=== PATIENT | female | born 1970 | race Two or more races ===

== ENCOUNTER 2017-06-08 20:20 | Emergency (ER) | payer MEDICAID ==
--- NOTE | 2017-06-08 23:15 | ER Document Report ---
ED General - General Chief Complaint: Other Stated Complaint: PICC LINE ISSUE Time Seen by Provider: 06/08/17 21:57 Notes: Patient is a 47-year-old female presents with a PICC line complication concern. Patient reports that she has had a PICC line in place for several months. This was placed in [place] related to skin grafting to her bilateral lower extremities. Patient notes that the PICC line had not been used for the past several weeks but she has been doing saline flushes as instructed as apparently she was told by her providers in [place] that they "want to use it in case they need to surgery again". Patient states that a very significant length of the PICC line catheter was always outside of her body "that I could reach it to put flushes through". However she states that tonight when she is chronically in the area the catheter simply fell out. She notes that only approximately 0.5 cm of tubing was actually removed from her line site for the entire catheter was completely removed. She denies any significant pain, drainage or erythema to the area. Denies any shortness of breath or chest pain. She is here visiting family from out of town. TRAVEL OUTSIDE OF THE [place] IN LAST 30 DAYS: No - Related Data Allergies/Adverse Reactions: No Known Allergies Allergy (Unverified 06/08/17 20:28) Past Medical History - General Information source: Patient - Social History Smoking Status: Never Smoker Frequency of alcohol use: None Drug Abuse: None Lives with: Family Family History: Reviewed & Not Pertinent Patient has suicidal ideation: No Patient has homicidal ideation: No - Past Medical History Cardiac Medical History: Reports: Hx Hypertension Endocrine Medical History: Reports: Hx Diabetes Mellitus Type 2 Renal/ Medical History: Denies: Hx Peritoneal Dialysis Review of Systems - Review of Systems Notes: Constitutional: Negative for fever. HENT: Negative for sore throat. Eyes: Negative for visual changes. Cardiovascular: Negative for chest pain. Respiratory: Negative for shortness of breath. Gastrointestinal: Negative for abdominal pain, vomiting or diarrhea. Genitourinary: Negative for dysuria. Musculoskeletal: Negative for back pain. Skin: Negative for rash. Neurological: Negative for headaches, weakness or numbness. 10 point ROS negative except as marked above and in HPI. Physical Exam - Vital signs Vitals: Temp Pulse Resp BP Pulse Ox 98.6 F 95 18 121/60 100 06/08/17 20:42 06/08/17 20:42 06/08/17 20:42 06/08/17 20:42 06/08/17 20:42 Interpretation: Normal Notes: PHYSICAL EXAMINATION: GENERAL: Well-appearing, well-nourished and in no acute distress. HEAD: Atraumatic, normocephalic. EYES: Pupils equal round and reactive to light, extraocular movements intact, sclera anicteric, conjunctiva are normal. ENT: nares patent, oropharynx clear without exudates. Moderately dry mucous membranes. NECK: Normal range of motion, supple without lymphadenopathy LUNGS: Breath sounds clear to auscultation bilaterally and equal. No wheezes rales or rhonchi. HEART: Regular rate and rhythm without murmurs ABDOMEN: Soft, nontender, normoactive bowel sounds. No guarding, no rebound. No masses appreciated. EXTREMITIES: Normal range of motion, no pitting or edema. No cyanosis. NEUROLOGICAL: No focal neurological deficits. Moves all extremities spontaneously and on command. PSYCH: Normal mood, normal affect. SKIN: Warm, Dry, normal turgor, small punctate wound to the right upper inner arm to the area of the brachial vein without any concerning erythema or exudate expression. Course - Re-evaluation Re-evalutation: 06/08/17 23:14 Patient presents after her right PICC line fell out although she reports that when it fell out only a very small tip of the catheter came out with the PICC line. The catheter that the patient brings with her does appear to have been cut off at the tip although I am uncertain of if it was this way when it was inserted. Will obtain a chest x-ray to evaluate for any remaining component that could be within the chest of the patient is denying any symptoms at this point. This line was placed apparently in [place] for skin grafting of the bilateral lower extremities. Her vitals otherwise within normal limits. If chest x-ray does not visualize any retained foreign body will plan for discharge home. 06/08/17 23:38 Chest x-ray does not visualize any foreign body. Patient will follow up with the group whom place the PICC line. At this time will discharge with return precautions and follow-up recommendations. Verbal discharge instructions given a the bedside and opportunity for questions given. Medication warnings reviewed. Patient is in agreement with this plan and has verbalized understanding of return precautions and the need for primary care follow-up in the next 24-72 hours. - Vital Signs Vital signs: Temp Pulse Resp BP Pulse Ox 99.3 F 97 18 129/82 H 100 06/09/17 00:37 06/09/17 00:37 06/09/17 00:37 06/09/17 00:50 06/08/17 20:42 - Diagnostic Test Radiology reviewed: Image reviewed, Reports reviewed Radiology results interpreted by me: 06/08/17 23:38 Chest x-ray: No evidence of retained foreign body in the central vasculature. No pneumothorax. Discharge - Discharge Clinical Impression: S/P PICC central line placement Condition: Good Disposition: HOME, SELF-CARE Additional Instructions: Please contact the group that placed the PICC line in regards to what exactly happened with placement of this line as it does not appear that it was placed appropriately. Your chest x-ray is normal. Return for any spreading redness or bleeding from the site where the PICC line was inserted. Please also return for any fever or additional symptoms that are worrisome to you.
--- NOTE | 2017-06-09 00:14 | RADIOLOGY REPORT (SQ) ---
EXAM DESCRIPTION: CHEST SINGLE VIEW CLINICAL HISTORY: 47 years, Female, picc line, eval any remaining catheter COMPARISON: None. FINDINGS: Normal lung volume, clear parenchyma, normal cardiac silhouette, and intact bony thorax. IMPRESSION: No acute cardiopulmonary findings.
[2017-06-09 01:26] VITALS: BP 129/82
== END 2017-06-09 00:50 | disposition home or self-care (01) ==
LOC: ER 20:20
DX: Z45.2 Encounter for adjustment and management of vascular access device (principal); Z98.890 Other specified postprocedural states; E11.9 Type 2 diabetes mellitus without complications; I10 Essential (primary) hypertension
CPT/HCPCS: 71045; 99283

== ENCOUNTER 2017-06-27 11:27 | Emergency (ER) | payer MEDICAID ==
[2017-06-27] MEDS ORDERED: INSULIN REG, HUMAN 100 UNIT/ML 3 ML VIAL (PYX) SUBCUT ONE ×2 (13:02→14:17)
--- NOTE | 2017-06-27 13:02 | ER Document Report ---
ED General - General Chief Complaint: Medication Refill Stated Complaint: MEDICATION REFILL Time Seen by Provider: 06/27/17 13:02 Mode of Arrival: Ambulatory Information source: Patient Notes: 47-year-old female presents initially as a medication refill, it is noted that the patient went to the [facility] but was unable to get appointments, she has been out of her medications for approximately 1 day but notes that she has been stretching out her insulin and has not been taking appropriate amounts. Patient denies any nausea vomiting diarrhea TRAVEL OUTSIDE OF THE [place] IN LAST 30 DAYS: No - HPI Onset: Yesterday Onset/Duration: Sudden Quality of pain: No pain Severity: Mild Pain Level: Denies Associated symptoms: Other Exacerbated by: Denies Relieved by: Denies Similar symptoms previously: Yes Recently seen / treated by doctor: Yes - Related Data Allergies/Adverse Reactions: No Known Allergies Allergy (Verified 06/27/17 11:28) Past Medical History - Social History Smoking Status: Never Smoker Cigarette use (# per day): No Chew tobacco use (# tins/day): No Smoking Education Provided: No Frequency of alcohol use: None Drug Abuse: None Family History: Reviewed & Not Pertinent Patient has suicidal ideation: No Patient has homicidal ideation: No - Past Medical History Cardiac Medical History: Reports: Hx Hypertension Endocrine Medical History: Reports: Hx Diabetes Mellitus Type 2 Renal/ Medical History: Denies: Hx Peritoneal Dialysis Review of Systems - Review of Systems Notes: REVIEW OF SYSTEMS: CONSTITUTIONAL : Denies fever, chills, or sweats. Denies recent illness. EENT: Denies eye, ear, throat, or mouth pain or symptoms. Denies nasal or sinus congestion or discharge. Denies throat, tongue, or mouth swelling or difficulty swallowing. CARDIOVASCULAR: Denies chest pain. Denies palpitations or racing or irregular heart beat. Denies ankle edema. RESPIRATORY: Denies cough, cold, or chest congestion. Denies shortness of breath, difficulty breathing, or wheezing. GASTROINTESTINAL: Denies abdominal pain or distention. Denies nausea, vomiting , or diarrhea. Denies blood in vomitus, stools, or per rectum. Denies black, tarry stools. Denies constipation. GENITOURINARY: Denies difficulty urinating, painful urination, burning, frequency, blood in urine, or discharge. FEMALE GENITOURINARY: Denies vaginal bleeding, heavy or abnormal periods, irregular periods. Denies vaginal discharge or odor. MUSCULOSKELETAL: Denies back or neck pain or stiffness. Denies joint pain or swelling. SKIN: Denies rash, lesions or sores. HEMATOLOGIC : Denies easy bruising or bleeding. LYMPHATIC: Denies swollen, enlarged glands. NEUROLOGICAL: Denies confusion or altered mental status. Denies passing out or loss of consciousness. Denies dizziness or lightheadedness. Denies headache. Denies weakness or paralysis or loss of use of either side. Denies problems with gait or speech. Denies sensory loss, numbness, or tingling. Denies seizures. PSYCHIATRIC: Denies anxiety or stress. Denies depression, suicidal ideation, or homicidal ideation. ALL OTHER SYSTEMS REVIEWED AND NEGATIVE. PHYSICAL EXAMINATION: GENERAL: Well-appearing, well-nourished and in no acute distress. HEAD: Atraumatic, normocephalic. EYES: Pupils equal round and reactive to light, extraocular movements intact, conjunctiva are normal. ENT: Nares patent, oropharynx clear without exudates. Moist mucous membranes. NECK: Normal range of motion, supple without lymphadenopathy LUNGS: Breath sounds clear to auscultation bilaterally and equal. No wheezes rales or rhonchi. HEART: Regular rate and rhythm without murmurs ABDOMEN: Soft, nontender, nondistended abdomen. No guarding, no rebound. No masses appreciated. Female : deferred Musculoskeletal: Normal range of motion, no pitting or edema. No cyanosis. NEUROLOGICAL: Cranial nerves grossly intact. Normal speech, normal gait. Normal sensory, motor exams PSYCH: Normal mood, normal affect. SKIN: Warm, Dry, normal turgor, no rashes or lesions noted. Dictation was performed using [employer] voice recognition software Physical Exam - Vital signs Vitals: Temp Pulse Resp BP Pulse Ox 97.7 F 99 20 121/72 100 06/27/17 11:31 06/27/17 11:31 06/27/17 11:31 06/27/17 11:31 06/27/17 11:31 Course - Re-evaluation Re-evalutation: 06/27/17 13:03 Spoke with the [facility], noted patients on insulin, metformin , benazopril 06/27/17 16:17 Patient's Accu-Chek was significantly elevated, she was given insulin 2 and a blood sugar finally decreased, she will be written prescriptions and given very strict follow-up instructions. Patient does not appear to be in DKA at this time, After performing a Medical Screening Examination, I estimate there is LOW risk for INTRACRANIAL HEMORRHAGE, ISCHEMIC CVA, MALIGNANT DYSRHYTHMIA, ACUTE CORONARY SYNDROME, MENINGITIS, PULMONARY EMBOLISM, or SEPSIS thus I consider the discharge disposition reasonable. I have reevaluated this patient multiple times and no significant life threatening changes are noted. The patient and I have discussed the diagnosis and risks, and we agree with discharging home with close follow-up with the understanding that symptoms and presentations can change. We also discussed returning to the Emergency Department immediately if new or worsening symptoms occur. We have discussed the symptoms which are most concerning (e.g., changing or worsening pain, weakness, vomiting, fever) that necessitate immediate return. - Vital Signs Vital signs: Temp Pulse Resp BP Pulse Ox 98.0 F 89 18 102/58 L 100 06/27/17 16:00 06/27/17 16:00 06/27/17 16:00 06/27/17 16:00 06/27/17 16:00 - Laboratory Laboratory results interpreted by me: 06/27/17 06/27/17 06/27/17 12:56 14:13 15:43 POC Glucose 378 H 363 H 256 H Critical Care Note - Critical Care Note Total time excluding time spent on procedures (mins): 49 Comments: 49 minutes of critical care time spent in direct contact evaluating and reevaluating the patient, treating symptoms, reviewing labs and studies and speaking with family and consultants excluding any procedures Discharge - Discharge Clinical Impression: Hyperglycemia Hypertension Qualifiers: Hypertension type: essential hypertension Qualified Code(s): I10 - Essential ( primary) hypertension Condition: Stable Disposition: HOME, SELF-CARE Instructions: Diabetes ([facility]), High Blood Pressure ([facility]) Additional Instructions: Follow up with your physician tomorrow for further care or return to the ED IMMEDIATELY if symptoms worsen or new concerns occur. If you cannot afford to follow up with your primary care physician a list of low cost clinics have been provided at the end of your discharge papers as well. Prescriptions: Insulin Glargine,Hum.rec.anlog [Stormyaglclemente Burris U-100] 35 unit SQ QHS 30 Days insuln.pen Benazepril HCl 10 mg PO DAILY #30 tablet Insulin Lispro [Admelog Solostar] 10 unit SQ MEALS 30 Days insuln.pen Metformin HCl 1,000 mg PO BID #60 tablet
[2017-06-27 16:09] VITALS: BP 102/58
== END 2017-06-27 16:10 | disposition home or self-care (01) ==
LOC: ER 11:27
DX: E11.65 Type 2 diabetes mellitus with hyperglycemia (principal); T38.3X6A Underdosing of insulin and oral hypoglycemic [antidiabetic] drugs, initial encounter; Z91.128 Patient's intentional underdosing of medication regimen for other reason; Z91.14 Patient's other noncompliance with medication regimen; Z79.4 Long term (current) use of insulin; Z79.84 Long term (current) use of oral hypoglycemic drugs; I10 Essential (primary) hypertension; Z79.899 Other long term (current) drug therapy
CPT/HCPCS: 99291; 82962; J1815

== ENCOUNTER → 2017-08-16 | Outpatient (CLI) | payer OTHER ==
[2017-08-16 13:11] LABS: ABSOLUTE BASOPHILS # (AUTO) 0.1 10^3/uL (0.0-0.2); ABSOLUTE EOSINOPHILS # (AUTO) 0.2 10^3/uL (0.0-0.6); ABSOLUTE LYMPHOCYTES (AUTO) 2.7 10^3/uL (0.5-4.7); ABSOLUTE MONOCYTES (AUTO) 0.5 10^3/uL (0.1-1.4); BASOPHILS % (AUTO) 0.9 % (0-2); EOSINOPHILS % (AUTO) 2.2 % (0-6); HEMATOCRIT 33.5 % (36.0-47.0); HEMOGLOBIN 11.5 g/dL (12.0-15.5); LYMPHOCYTES % (AUTO) 25.8 % (13-45); MEAN CORPUSCULAR HEMOGLOBIN 30.2 pg (27.0-33.4); MEAN CORPUSCULAR HGB CONC 34.2 g/dL (32.0-36.0); MEAN CORPUSCULAR VOLUME 88 fl (80-97); MONOCYTES % (AUTO) 4.6 % (3-13); PLATELET COUNT 283 10^3/uL (150-450); RED CELL DISTRIBUTION WIDTH 12.5 % (11.5-14.0); SEGMENTED NEUTROPHILS % (AUTO) 66.5 % (42-78); TOTAL CELLS COUNTED % (AUTO) 100 %; WHITE BLOOD COUNT 10.6 10^3/uL (4.0-10.5)
[2017-08-16 13:29] LABS: ALANINE AMINOTRANSFERASE 26 U/L (9-52); ALBUMIN 4.3 g/dL (3.5-5.0); ALKALINE PHOSPHATASE 66 U/L (38-126); ANION GAP 15 (5-19); ASPARTATE AMINO TRANSFERASE 15 U/L (14-36); BILIRUBIN,DIRECT 0.4 mg/dL (0.0-0.4); BILIRUBIN,TOTAL 0.8 mg/dL (0.2-1.3); BLOOD UREA NITROGEN 43 mg/dL (7-20); CALCIUM 9.9 mg/dL (8.4-10.2); CARBON DIOXIDE 24 mmol/L (22-30); CHLORIDE 106 mmol/L (98-107); CHOLESTEROL 188.94 mg/dL (0-200); GLUCOSE 192 mg/dL (75-110); POTASSIUM 5.8 mmol/L (3.6-5.0); SODIUM 145.1 mmol/L (137-145); TOTAL PROTEIN 7.9 g/dL (6.3-8.2); TRIGLYCERIDES 215 mg/dL (<150)
[2017-08-16 13:40] LABS: DIRECT LDL 88 mg/dL (<100)
== END ==
LOC: CCC 11:45
DX: E11.8 Type 2 diabetes mellitus with unspecified complications (principal)
CPT/HCPCS: 36415; 80053; 80061; 83036; 84443; 85025

== ENCOUNTER 2018-10-17 09:25 | Inpatient (IN) | payer SELFPAY ==
--- NOTE | 2018-10-17 09:45 | ER Document Report ---
ED Medical Screen (RME) - General Chief Complaint: Foot Pain Stated Complaint: FOOT PAIN Time Seen by Provider: 10/17/18 09:43 Primary Care Provider: LATA MURPHY [Primary Care Provider] - Follow up as needed Mode of Arrival: Wheelchair Information source: Patient Notes: Patient presents with diabetic foot wound infection involving the left fourth toe. Patient has already had a previous left fifth toe amputation. Patient reports chills and fever at home with purulent drainage from the wound. Patient was sent here from her primary doctor's office with the intent that she should be admitted. Patient does have a history of diabetes and her blood sugar was over 500 today. Patient also has a history of hypertension I have greeted and performed a rapid initial assessment of this patient. A comprehensive ED assessment and evaluation of the patient, analysis of test results and completion of the medical decision making process will be conducted by additional ED providers. TRAVEL OUTSIDE OF THE [place] IN LAST 30 DAYS: No - Related Data Allergies/Adverse Reactions: No Known Allergies Allergy (Verified 10/17/18 09:42) Past Medical History - Past Medical History Cardiac Medical History: Reports: Hx Hypertension Endocrine Medical History: Reports: Hx Diabetes Mellitus Type 2 Renal/ Medical History: Denies: Hx Peritoneal Dialysis Physical Exam - Vital signs Vitals: Temp Pulse Resp BP Pulse Ox 98.1 F 98 18 153/110 H 97 10/17/18 09:30 10/17/18 09:30 10/17/18 09:30 10/17/18 09:30 10/17/18 09:30 - General Notes: Diabetic foot infection with abscess involving the left fourth toe Course - Vital Signs Vital signs: Temp Pulse Resp BP Pulse Ox 98.1 F 98 18 153/110 H 97 10/17/18 09:30 10/17/18 09:30 10/17/18 09:30 10/17/18 09:30 10/17/18 09:30 Doctor's Discharge - Discharge Referrals: LATA MURPHY [Primary Care Provider] - Follow up as needed
--- NOTE | 2018-10-17 10:33 | RADIOLOGY REPORT (SQ) ---
EXAM DESCRIPTION: FOOT LEFT COMPLETE COMPLETED DATE/TIME: 10/17/2018 10:23 am REASON FOR STUDY: diabetic foot wound COMPARISON: None. NUMBER OF VIEWS: Three views. TECHNIQUE: AP, lateral and oblique without weight bearing radiographic images acquired of the left f oot. LIMITATIONS: None. FINDINGS: MINERALIZATION: Normal. BONES: Previous amputation of the 5th toe. No acute fracture or dislocation. No worrisome bone lesio ns. No significant osteophytes. JOINTS: No erosions. No chuy-articular osteopenia. No chondrocalcinosis. SOFT TISSUES: No swelling. No calcifications. OTHER: No other significant finding. IMPRESSION: PREVIOUS AMPUTATION OF THE LEFT 5TH TOE. NO OTHER SIGNIFICANT FINDINGS. TECHNICAL DOCUMENTATION: JOB ID: [id number] [employer]- All Rights Reserved Reading location - IP/workstation name: [email or web address]
[2018-10-17 10:53] LABS: HEMATOCRIT 34.5 % (36.0-47.0); HEMOGLOBIN 11.6 g/dL (12.0-15.5); MEAN CORPUSCULAR HEMOGLOBIN 29.3 pg (27.0-33.4); MEAN CORPUSCULAR HGB CONC 33.6 g/dL (32.0-36.0); MEAN CORPUSCULAR VOLUME 87 fl (80-97); PLATELET COUNT 201 10^3/uL (150-450); RED BLOOD COUNT 3.95 10^6/uL (3.72-5.28); RED CELL DISTRIBUTION WIDTH 12.3 % (11.5-14.0); WHITE BLOOD COUNT 13.2 10^3/uL (4.0-10.5)
[2018-10-17 11:06] LABS: ABSOLUTE LYMPHOCYTES# (MANUAL) 3.2 10^3/uL (0.5-4.7); ABSOLUTE MONOCYTES # (MANUAL) 0.5 10^3/uL (0.1-1.4); BASOPHILS % (MANUAL) 1 % (0-2); EOSINOPHILS % (MANUAL) 6 % (0-6); LYMPHOCYTES % (MANUAL) 23 % (13-45); MONOCYTES % (MANUAL) 4 % (3-13); SEGMENTED NEUTROPHILS % (MAN) 65 % (42-78); TOTAL CELLS COUNTED 100
[2018-10-17 11:10] LABS: PLATELET COMMENT ADEQUATE; RBC MORPHOLOGY COMMENT NORMO-CYTIC/CHROMIC
[2018-10-17 11:18] LABS: ALANINE AMINOTRANSFERASE 17 U/L (9-52); ALBUMIN 3.2 g/dL (3.5-5.0); ALKALINE PHOSPHATASE 115 U/L (38-126); ANION GAP 13 (5-19); ASPARTATE AMINO TRANSFERASE 15 U/L (14-36); BILIRUBIN,DIRECT 0.2 mg/dL (0.0-0.4); BILIRUBIN,TOTAL 0.7 mg/dL (0.2-1.3); BLOOD UREA NITROGEN 41 mg/dL (7-20); CALCIUM 8.8 mg/dL (8.4-10.2); CARBON DIOXIDE 20 mmol/L (22-30); CHLORIDE 100 mmol/L (98-107); GLUCOSE 391 mg/dL (75-110); SODIUM 132.6 mmol/L (137-145); TOTAL PROTEIN 6.5 g/dL (6.3-8.2)
[2018-10-17 11:23] LABS: VENOUS BLOOD BASE EXCESS 2.3 mmol/L; VENOUS BLOOD HCO3 29.6 mmol/L (20-32); VENOUS BLOOD PCO2 56.9 mmHg (35-63); VENOUS BLOOD PH 7.33 (7.30-7.42)
[2018-10-17] MEDS ORDERED: VANCOMYCIN HCL INJ 1000 MG VIAL IV ONE (11:38)
[2018-10-17] MEDS ORDERED: PIPERACILLIN/TAZOBACTAM 3.375 GM VIAL IV ONE (11:38)
[2018-10-17] MEDS ORDERED: NORMAL SALINE 1000 ML 1,000 ML IV ONE (11:39)
--- NOTE | 2018-10-17 12:00 | ER Document Report ---
ED General - General Chief Complaint: Foot Pain Stated Complaint: FOOT PAIN Time Seen by Provider: 10/17/18 09:43 Mode of Arrival: Wheelchair TRAVEL OUTSIDE OF THE [place] IN LAST 30 DAYS: No - HPI Notes: 48-year-old female with history of diabetes to the emergency department from her primary care physician's office with complaints of left fourth toe diabetic foot infection. She states that she started to notice that the toe was changing colors at the beginning of the weekend. States that she was trying to keep it clean but on Monday she noticed purulent drainage and that it was starting to get red. She admits to subjective fevers. She states that she called her primary care physician who told her to come in on Monday for further evaluation. States that when she got to her primary care physician's office her blood sugar was running in the 500s and after exam, her primary care physician asked for her to come to the emergency department for admission. She admits that she has not had her insulin, Lantus and NovoLog, for nearly 3 months. One year ago she had the left pinky toe amputated after a similar episode in [place]. She does not have a health information technologist here. She has no feeling in both of her feet but she denies any sort of injury. - Related Data Allergies/Adverse Reactions: No Known Allergies Allergy (Verified 10/17/18 09:42) Past Medical History - General Information source: Patient, Relative - Social History Smoking Status: Never Smoker Chew tobacco use (# tins/day): No Frequency of alcohol use: None Drug Abuse: None Family History: Reviewed & Not Pertinent Patient has suicidal ideation: No Patient has homicidal ideation: No - Past Medical History Cardiac Medical History: Reports: Hx Hypertension Endocrine Medical History: Reports: Hx Diabetes Mellitus Type 2 Renal/ Medical History: Denies: Hx Peritoneal Dialysis Review of Systems - Review of Systems Constitutional: Fever. denies: Chills EENT: No symptoms reported Cardiovascular: denies: Chest pain, Palpitations, Syncope, Dizziness, Lightheaded Respiratory: denies: Cough, Short of breath Gastrointestinal: denies: Abdominal pain, Diarrhea, Nausea, Vomiting Genitourinary: No symptoms reported Musculoskeletal: Joint swelling - Left fourth toe edema Skin: Lesions - Ulcer and wound to the left fourth toe with draining pus Neurological/Psychological: Numbness - Chronic numbness bilateral feet -: Yes All other systems reviewed and negative Physical Exam - Vital signs Vitals: Temp Pulse Resp BP Pulse Ox 98.1 F 98 18 153/110 H 97 10/17/18 09:30 10/17/18 09:30 10/17/18 09:30 10/17/18 09:30 10/17/18 09:30 Interpretation: Hypertensive - General General appearance: Appears well In distress: None - HEENT Head: Normocephalic, Atraumatic Eyes: Normal Pupils: PERRL - Respiratory Respiratory status: No respiratory distress Chest status: Nontender Breath sounds: Normal Chest palpation: Normal - Cardiovascular Rhythm: Regular Heart sounds: Normal auscultation Murmur: No - Extremities General lower extremity: Nontender, Normal ROM, Normal strength, Other - See skin for discussion of left fourth toe ulcer - Psychological Associated symptoms: Normal affect, Normal mood - Skin Skin Color: Erythema Skin irregularity: Lesion - To the left dorsal fourth toe, there is an evolving diabetic foot ulcer with noted purulence and surrounding edema and erythema. The erythema streaks up onto the dorsum of the foot. Course - Vital Signs Vital signs: Temp Pulse Resp BP Pulse Ox 97.9 F 88 16 157/95 H 99 10/17/18 14:06 10/17/18 14:06 10/17/18 14:06 10/17/18 14:06 10/17/18 14:06 - Laboratory Result Diagrams: 10/17/18 10:39 10/17/18 10:39 Laboratory results interpreted by me: 10/17/18 10/17/18 10:39 10:39 WBC 13.2 H Hgb 11.6 L Hct 34.5 L Abs Neuts (Manual) 8.6 H Absolute Eos (Manual) 0.8 H Sodium 132.6 L Carbon Dioxide 20 L BUN 41 H Glucose 391 H Albumin 3.2 L - Transfer of Care Notes: 10/17/[address] Borrego, ER attending. He agrees with the plan for admission for the patient for infected diabetic foot ulcer with leukocytosis and uncontrolled hyperglycemia. Patient is not diabetic ketoacidosis. Spoke with Dr. Boyle, Hospitalist. He asked for me to call Verenice Maxwell NP for hospitalist team, for admission. Spoke with nurse practitioner Verenice Maxwell and she agrees with the plan for admission. She is aware of patient's current vital signs as well as her leukocytosis and her hyperglycemia. She is aware of insulin treatment from clinic prior to arrival. She is also aware of vancomycin and Zosyn ordered for infection. We also discussed x-ray that does not show signs of osteomyelitis. She would like for me to consult to general surgery for evaluation for debridement. Paged Dr. Kelly, general surgery, He is currently in surgery, asked his nurse to call me once he has completed the surgery. 10/17/[address] Kelly, General Surgery. He will consult on the patient. he is aware of patient's floor bed and will see her. We discussed her leukocytosis, vitals, XR, DM. Patient agrees with the plan. Discharge - Discharge Clinical Impression: Diabetic foot ulcer Qualifiers: Diabetic foot ulcer location: toe Diabetes mellitus type: type 1 Laterality: left Non-pressure ulcer stage: with other severity Qualified Code(s): E10.621 - Type 1 diabetes mellitus with foot ulcer Cellulitis Qualifiers: Site of cellulitis of extremity: lower extremity Laterality: left Disposition: ADMITTED INPATIENT Admitting Provider: Verenice Maxwell NP Unit Admitted: [facility]
[2018-10-17] MEDS ORDERED: ACETAMINOPHEN 325 MG TABLET PO PRN (13:07)
[2018-10-17] MEDS ORDERED: ONDANSETRON 4 MG TAB.RAPDIS PO PRN (13:07)
[2018-10-17] MEDS ORDERED: DEXTROSE 40% GEL 15 GM TUBE PO PRN ×2 (13:22)
[2018-10-17] MEDS ORDERED: GLUCAGON,HUMAN RECOMB 1 MG INJ IM PRN (13:22)
[2018-10-17] MEDS ORDERED: DEXTROSE 50%-WATER 25 GM/50 ML DISP.SYRIN IV PRN ×2 (13:22)
[2018-10-17] MEDS ORDERED: HYDRALAZINE HCL INJ/PF 20 MG/1 ML SDV IV PRN (13:24)
[2018-10-17] MEDS ORDERED: VANCOMYCIN HCL 0 MG in DEXTROSE 5%-WATER 250 ML IV NR (13:30)
--- NOTE | 2018-10-17 13:51 | PDOC H&P ---
History of Present Illness Admission Date/PCP: 10/17/18 12:19 ELMO REAGAN MD Patient complains of: L FOOT PAIN History of Present Illness: MIREYA BRADY is a 48 year old female with a PMH of DM type 1 and HTN. Patient presents to the emergency department with a 5-day history of left foot pain, erythema initiating from the fourth toe and an ulcer forming on the dorsal surface of the fourth toe. The patient states that her wound and surrounding erythema were getting progressively worse over the last few days. She went to the [facility] in [place] to have her foot evaluated. At the clinic, her blood glucose was 500+. The patient's PCP instructed her to come to the emergency department for treatment of her DM and foot. Upon presentation, the patient's laboratory results are relatively benign. Only indicative of hyperglycemia (BG 391), leukocytosis (WBC 13), mild hyponatremia (Na 132). X-ray of the left foot is WNL, not indicative of osteomyelitis. On assessment, the 4th left toe has an open wound on the dorsal surface with minimal purulent drainage. There is surrounding erythema at the base of the left fourth toe extending to the dorsal surface of the left foot. There is nonpitting edema to the left foot and ankle. The patient states she does not feel pain, in fact, has no sensation below the knees (this is chronic due to poorly controlled diabetes). Of note, the patient moved to [place], [place] from [place] within the last year. She is currently unemployed and without health insurance. The patient sta luis she has been attempting to manage her diabetes and HTN with strict dieting. She has not been taking her insulin for the last three months because she "didn't feel like it." Plan to admit to the hospitalist service for cellulitis and diabetes management. Past Medical History Cardiac Medical History: Reports: Hypertension Endocrine Medical History: Reports: Diabetes Mellitus Type 1 - DIAGNOSED AT AGE 8 Past Surgical History Past Surgical History: Reports: Other - L 5TH TOE AMPUTATION Social History Information Source: Relative Lives with: Family Smoking Status: Never Smoker Frequency of Alcohol Use: None Hx Recreational Drug Use: No Drugs: None Hx Prescription Drug Abuse: No - Advance Directive Resuscitation Status: Full Code Family History Family History: DM Parental Family History Reviewed: Yes Children Family History Reviewed: Yes Sibling(s) Family History Reviewed.: Yes Medication/Allergy Home Medications: Insulin Glargine,Hum.rec.anlog [Basaglar Kwikpen U-100] 35 unit SQ QHS 30 Days insuln.pen 06/27/17 Insulin Lispro [Admelog Solostar] 10 unit SQ MEALS 30 Days insuln.pen 06/27/17 Allergies/Adverse Reactions: No Known Allergies Allergy (Verified 10/17/18 09:42) Review of Systems Constitutional: ABSENT: chills, fever(s), headache(s), weight gain, weight loss Eyes: ABSENT: visual disturbances Ears: ABSENT: hearing changes Cardiovascular: ABSENT: chest pain, dyspnea on exertion, edema, orthropnea, palpitations Respiratory: ABSENT: cough, hemoptysis Gastrointestinal: ABSENT: abdominal pain, constipation, diarrhea, hematemesis, hematochezia, nausea, vomiting Genitourinary: ABSENT: dysuria, hematuria Musculoskeletal: ABSENT: joint swelling Integumentary: ABSENT: rash, wounds Neurological: PRESENT: paresthesias - BELOW THE KNEE B/L - SENCONDARY TO POORLY CONTROLLED DIABETES. ABSENT: abnormal gait, abnormal speech, confusion, dizziness, focal weakness, frequent falls, syncope Psychiatric: ABSENT: anxiety, depression, homidical ideation, suicidal ideation Endocrine: ABSENT: cold intolerance, heat intolerance, polydipsia, polyuria Hematologic/Lymphatic: ABSENT: easy bleeding, easy bruising Physical Exam Vital Signs: Temp Pulse Resp BP Pulse Ox 98.1 F 98 18 153/110 H 97 10/17/18 09:30 10/17/18 09:30 10/17/18 09:30 10/17/18 09:30 10/17/18 09:30 Intake & Output 10/16/18 10/17/18 10/18/18 06:59 06:59 06:59 Weight 78.8 kg General appearance: PRESENT: no acute distress, obese Head exam: PRESENT: atraumatic, normocephalic Eye exam: PRESENT: conjunctiva pink, EOMI, PERRLA. ABSENT: scleral icterus Ear exam: PRESENT: normal external ear exam Mouth exam: PRESENT: moist, tongue midline Neck exam: ABSENT: carotid bruit, JVD, lymphadenopathy, thyromegaly Respiratory exam: PRESENT: unlabored. ABSENT: rales, rhonchi, wheezes Cardiovascular exam: PRESENT: RRR. ABSENT: diastolic murmur, rubs, systolic murmur Pulses: PRESENT: normal radial pulses, +1 pedal pulses bilateral Vascular exam: PRESENT: normal capillary refill GI/Abdominal exam: PRESENT: normal bowel sounds, soft. ABSENT: distended, guarding, mass, organolmegaly, rebound, tenderness Rectal exam: PRESENT: deferred Extremities exam: PRESENT: full ROM. ABSENT: calf tenderness, clubbing, pedal edema, tenderness - BELOW THE L KNEE COMPLETE LOSS OF SENSATION Musculoskeletal exam: PRESENT: ambulatory, deformity - L FOOT 5TH TOE AMPUTATION. 4TH TOE ERYTHEMA AND EDEMA, full ROM. ABSENT: normal inspection Neurological exam: PRESENT: alert, awake, oriented to person, oriented to place, oriented to time, oriented to situation Psychiatric exam: PRESENT: appropriate affect, normal mood. ABSENT: homicidal ideation, suicidal ideation Skin exam: PRESENT: dry, intact, warm. ABSENT: cyanosis, rash Results Laboratory Results: 10/17/18 10:39 10/17/18 10:39 10/17/18 10/17/18 10/17/18 10:39 10:39 11:05 WBC 13.2 H RBC 3.95 Hgb 11.6 L Hct 34.5 L MCV 87 MCH 29.3 MCHC 33.6 RDW 12.3 Plt Count 201 Seg Neutrophils % Not Reportable Lymphocytes % Not Reportable Monocytes % Not Reportable Eosinophils % Not Reportable Basophils % Not Reportable Absolute Neutrophils Not Reportable Absolute Lymphocytes Not Reportable Absolute Monocytes Not Reportable Absolute Eosinophils Not Reportable Absolute Basophils Not Reportable VBG pH 7.33 VBG pCO2 56.9 VBG HCO3 29.6 VBG Base Excess 2.3 Sodium 132.6 L Potassium 5.0 Chloride 100 Carbon Dioxide 20 L Anion Gap 13 BUN 41 H Creatinine 0.98 Est GFR ( Amer) > 60 Est GFR (Non-Af Amer) > 60 Glucose 391 H Calcium 8.8 Total Bilirubin 0.7 AST 15 ALT 17 Alkaline Phosphatase 115 Total Protein 6.5 Albumin 3.2 L Impressions: Foot X-Ray 10/17/18 09:44 IMPRESSION: PREVIOUS AMPUTATION OF THE LEFT 5TH TOE. NO OTHER SIGNIFICANT FINDINGS. Status: Imported from PACS Assessment and Plan - Diagnosis (1) Diabetic foot ulcer Qualifiers: Diabetic foot ulcer location: toe Diabetes mellitus type: type 1 Laterality: left Non-pressure ulcer stage: with other severity Qualified Code(s): E10.621 - Type 1 diabetes mellitus with foot ulcer; L97.528 - Non-pre ssure chronic ulcer of other part of left foot with other specified severity Is this a current diagnosis for this admission?: Yes Plan: L 4th toe diabetic foot ulcer With surrounding erythema and edema to the dorsal aspect of the left foot History of osteomyelitis in the L fifth toe, status post amputation X-ray left foot negative for osteomyelitis Broad-spectrum antibiotic coverage as these wounds tend to be poly microbial Received IV vancomycin and Zosyn in the emergency department, plan to continue throughout hospitalization Will consult surgery for possible wound debridement If no improvement of clinical picture, consider foot MRI for better osteomyelitis evaluation and/or amputation (2) Cellulitis Qualifiers: Site of cellulitis of extremity: lower extremity Laterality: left Is this a current diagnosis for this admission?: Yes Plan: see plan above (3) HTN (hypertension) Qualifiers: Hypertension type: essential hypertension Qualified Code(s): I10 - Essential (primary) hypertension Is this a current diagnosis for this admission?: Yes Plan: H HTN Patient states she is trying to control it with diet Currently not taking any medications PRN hydralazine IV for SBP>170 (4) Diabetes type 1, uncontrolled Qualifiers: Coma presence: without coma Is this a current diagnosis for this admission?: Yes Plan: [facility] DM type 1 Diagnosed at age 8 Currently not taking insulin, states she "wanted a break from all of the fingersticks" Check Hgb A1C in AM Accu-Cheks AC at bedtime Humalog sliding scale insulin - Time Time Spent with patient: 15-24 minutes Medications reviewed and adjusted accordingly: Yes Anticipated discharge: Home Within: Other - when medically stable - Inpatient Certification Based on my medical assessment, after consideration of the patient's comorbidities, presenting symptoms, or acuity I expect that the services needed warrant INPATIENT care.: Yes I certify that my determination is in accordance with my understanding of Medicare's requirements for reasonable and necessary INPATIENT services [42 CFR 412.3e].: Yes Medical Necessity: Need for IV Antibiotics, Risk of Complication if Not Cared For in Hospital
[2018-10-17] MEDS: INSULIN LISPRO 100 UNIT/ML 3 ML VIAL SUBCUT SCH ×2 (16:06→21:55)
[2018-10-17] MEDS: NORMAL SALINE 1000 ML 1,000 ML IV PRN (17:21)
[2018-10-17] MEDS: PIPERACILLIN SODIUM/TAZOBACTAM 3.375 GM in NORMAL SALINE 100 ML IV SCH (17:21)
--- NOTE | 2018-10-17 17:53 | PDOC CONSULTATION ---
Consultation Consult Date: 10/17/18 Provider Consulted: SHAYLEE CEDENO Consult reason:: cellulitis left 4th toe History of Present Illness Admission Date/PCP: 10/17/18 12:19 ELMO REAGAN MD Patient complains of: pains left 4th toe History of Present Illness: MIREYA BRADY is a 48 year old female who is a Type 1 Diabetic post amp left 5th toe started noticing pains left 4th toe with blister 5 days ago. 2 days ago noted pus come out oft he 4th toe and came to ED today. Denies fever or chills. Past Medical History Cardiac Medical History: Reports: Hypertension Endocrine Medical History: Reports: Diabetes Mellitus Type 1 - DIAGNOSED AT AGE 8, Diabetes Mellitus Type 2 Psychiatric Medical History: Reports: Depression Past Surgical History Past Surgical History: Reports: Other - L 5TH TOE AMPUTATION Social History Lives with: Family Smoking Status: Never Smoker Frequency of Alcohol Use: None Hx Recreational Drug Use: No Drugs: None Hx Prescription Drug Abuse: No - Advance Directive Resuscitation Status: Full Code Family History Family History: Reviewed & Not Pertinent Parental Family History Reviewed: Yes Children Family History Reviewed: No Sibling(s) Family History Reviewed.: No Medication/Allergy Home Medications: Insulin Glargine,Hum.rec.anlog [Basaglar Kwikpen U-100] 35 unit SQ QHS 30 Days insuln.pen 06/27/17 Insulin Lispro [Humalog Insulin 100 Unit/1 ml 3 ml Vial] 5 unit INJ AC 10/17/18 Lisinopril [Prinivil 10 mg Tablet] 10 mg PO DAILY 10/17/18 Allergies/Adverse Reactions: No Known Allergies Allergy (Verified 10/17/18 09:42) Review of Systems Constitutional: PRESENT: as per HPI Physical Exam Vital Signs: Temp Pulse Resp BP Pulse Ox 98 F 88 16 171/88 H 100 10/17/18 14:34 10/17/18 14:34 10/17/18 14:34 10/17/18 14:34 10/17/18 14:34 Intake & Output 10/16/18 10/17/18 10/18/18 06:59 06:59 06:59 Intake Total 1000 Balance 1000 Weight 78.7 kg General appearance: PRESENT: mild distress Head exam: PRESENT: atraumatic Eye exam: PRESENT: conjunctiva pink Mouth exam: PRESENT: moist Neck exam: PRESENT: full ROM Respiratory exam: PRESENT: clear to auscultation [place] Cardiovascular exam: PRESENT: RRR Pulses: PRESENT: normal radial pulses, other - unable to palpate left ankle pulses. Palpable popliteal artedy Vascular exam: PRESENT: normal capillary refill GI/Abdominal exam: PRESENT: soft Rectal exam: PRESENT: deferred Extremities exam: PRESENT: other - left 4th toe erythematous with a blister/abscess on the top of IP joint. Neurological exam: PRESENT: alert, oriented to person, oriented to place, oriented to time, oriented to situation Psychiatric exam: PRESENT: appropriate affect Skin exam: PRESENT: erythema - left 4th toe, warm Results Laboratory Results: 10/17/18 10:39 10/17/18 10:39 10/17/18 10/17/18 10/17/18 10:39 10:39 11:05 WBC 13.2 H RBC 3.95 Hgb 11.6 L Hct 34.5 L MCV 87 MCH 29.3 MCHC 33.6 RDW 12.3 Plt Count 201 Seg Neutrophils % Not Reportable Lymphocytes % Not Reportable Monocytes % Not Reportable Eosinophils % Not Reportable Basophils % Not Reportable Absolute Neutrophils Not Reportable Absolute Lymphocytes Not Reportable Absolute Monocytes Not Reportable Absolute Eosinophils Not Reportable Absolute Basophils Not Reportable VBG pH 7.33 VBG pCO2 56.9 VBG HCO3 29.6 VBG Base Excess 2.3 Sodium 132.6 L Potassium 5.0 Chloride 100 Carbon Dioxide 20 L Anion Gap 13 BUN 41 H Creatinine 0.98 Est GFR ( Amer) > 60 Est GFR (Non-Af Amer) > 60 Glucose 391 H Lactic Acid Calcium 8.8 Total Bilirubin 0.7 AST 15 ALT 17 Alkaline Phosphatase 115 Total Protein 6.5 Albumin 3.2 L 10/17/18 13:35 WBC RBC Hgb Hct MCV MCH MCHC RDW Plt Count Seg Neutrophils % Lymphocytes % Monocytes % Eosinophils % Basophils % Absolute Neutrophils Absolute Lymphocytes Absolute Monocytes Absolute Eosinophils Absolute Basophils VBG pH VBG pCO2 VBG HCO3 VBG Base Excess Sodium Potassium Chloride Carbon Dioxide Anion Gap BUN Creatinine Est GFR ( Amer) Est GFR (Non-Af Amer) Glucose Lactic Acid 0.9 Calcium Total Bilirubin AST ALT Alkaline Phosphatase Total Protein Albumin Impressions: Foot X-Ray 10/17/18 09:44 IMPRESSION: PREVIOUS AMPUTATION OF THE LEFT 5TH TOE. NO OTHER SIGNIFICANT FINDINGS. Assessment & Plan - Diagnosis (1) Abscess of fourth toe, left Is this a current diagnosis for this admission?: Yes (2) Cellulitis Qualifiers: Site of cellulitis of extremity: lower extremity Laterality: left Is this a current diagnosis for this admission?: Yes (3) Diabetes type 1, uncontrolled Qualifiers: Coma presence: without coma Is this a current diagnosis for this admission?: Yes - Time Time Spent: 30 to 50 Minutes - Inpatient Certification Medical Necessity: Need for Pain Control, Need for IV Antibiotics, Need for Surgery - Plan Summary Plan Summary: For Debridement vs amputation left 4th toe. Npo after midnight Continue IV antibiotics
[2018-10-17] MEDS: FAMOTIDINE 20 MG TABLET PO SCH (21:53)
[2018-10-17] MEDS: VANCOMYCIN HCL 750 MG in DEXTROSE 5%-WATER 250 ML IV SCH (21:55)
[2018-10-17] MEDS ORDERED: INSULIN GLARGINE,HUM.REC.ANLOG 1,000 UNIT/10 ML VIAL SUBCUT SCH ×2 (22:00)
[2018-10-18] MEDS: PIPERACILLIN SODIUM/TAZOBACTAM 3.375 GM in NORMAL SALINE 100 ML IV SCH ×4 (00:47→19:30)
[2018-10-18 05:25] LABS: ABSOLUTE BASOPHILS # (AUTO) 0.1 10^3/uL (0.0-0.2); ABSOLUTE EOSINOPHILS # (AUTO) 0.3 10^3/uL (0.0-0.6); ABSOLUTE LYMPHOCYTES (AUTO) 2.3 10^3/uL (0.5-4.7); ABSOLUTE MONOCYTES (AUTO) 0.5 10^3/uL (0.1-1.4); ABSOLUTE NEUT (AUTO) 5.1 10^3/uL (1.7-8.2); BASOPHILS % (AUTO) 1.4 % (0-2); EOSINOPHILS % (AUTO) 3.9 % (0-6); HEMOGLOBIN 10.7 g/dL (12.0-15.5); LYMPHOCYTES % (AUTO) 27.7 % (13-45); MEAN CORPUSCULAR HEMOGLOBIN 30.1 pg (27.0-33.4); MEAN CORPUSCULAR HGB CONC 34.5 g/dL (32.0-36.0); MEAN CORPUSCULAR VOLUME 87 fl (80-97); MONOCYTES % (AUTO) 6.4 % (3-13); PLATELET COUNT 227 10^3/uL (150-450); RED BLOOD COUNT 3.56 10^6/uL (3.72-5.28); RED CELL DISTRIBUTION WIDTH 12.7 % (11.5-14.0); SEGMENTED NEUTROPHILS % (AUTO) 60.6 % (42-78); TOTAL CELLS COUNTED % (AUTO) 100 %; WHITE BLOOD COUNT 8.5 10^3/uL (4.0-10.5)
[2018-10-18 05:56] LABS: ALANINE AMINOTRANSFERASE 12 U/L (9-52); ALBUMIN 2.7 g/dL (3.5-5.0); ALKALINE PHOSPHATASE 94 U/L (38-126); ANION GAP 7 (5-19); ASPARTATE AMINO TRANSFERASE 14 U/L (14-36); BILIRUBIN,DIRECT 0.1 mg/dL (0.0-0.4); BILIRUBIN,TOTAL 0.4 mg/dL (0.2-1.3); BLOOD UREA NITROGEN 25 mg/dL (7-20); CALCIUM 8.2 mg/dL (8.4-10.2); CARBON DIOXIDE 23 mmol/L (22-30); CHLORIDE 105 mmol/L (98-107); CHOLESTEROL 253.41 mg/dL (0-200); GLUCOSE 303 mg/dL (75-110); PHOSPHORUS 4.2 mg/dL (2.5-4.5); POTASSIUM 4.8 mmol/L (3.6-5.0); SODIUM 135.3 mmol/L (137-145); TOTAL PROTEIN 5.7 g/dL (6.3-8.2); TRIGLYCERIDES 313 mg/dL (<150)
[2018-10-18] MEDS: NORMAL SALINE 1000 ML 1,000 ML IV PRN (05:59)
[2018-10-18 06:07] LABS: DIRECT LDL 119 mg/dL (<100)
[2018-10-18 06:10] LABS: VLDL CHOLESTEROL 62.6 mg/dL (10-31)
[2018-10-18] MEDS: ENOXAPARIN SODIUM INJ 40 MG/0.4 ML DISP.SYRIN SUBCUT SCH (09:22)
[2018-10-18] MEDS: FAMOTIDINE 20 MG TABLET PO SCH ×2 (09:27→21:43)
[2018-10-18] MEDS: VANCOMYCIN HCL 750 MG in DEXTROSE 5%-WATER 250 ML IV SCH ×2 (09:28→21:42)
[2018-10-18] MEDS: INSULIN LISPRO 100 UNIT/ML 3 ML VIAL SUBCUT SCH ×4 (09:32→21:42)
--- NOTE | 2018-10-18 11:27 | PDOC PROGRESS REPORT ---
Subjective Progress Note for:: 10/18/18 Subjective:: Feels better. Reason For Visit: CELLULITIS,DIABETIC FOOT WOUND Physical Exam Vital Signs: Temp Pulse Resp BP Pulse Ox 98.3 F 87 16 150/81 H 97 10/18/18 08:18 10/18/18 08:18 10/18/18 08:18 10/18/18 08:18 10/18/18 08:18 Intake & Output 10/17/18 10/18/18 10/19/18 06:59 06:59 06:59 Intake Total 3210 Balance 3210 Weight 78.8 kg Extremities exam: PRESENT: other - Right foot with no significant abnormalities with palpable pulses. Left foot warm but no palpable pedal pulses. Palpable popliteal pulse however. Left fourth toe with erythema and swelling with small opening at the dorsal aspect with purulent drainage. Results Laboratory Results: 10/18/18 04:42 10/18/18 04:42 10/17/18 10/17/18 10/18/18 11:05 13:35 04:42 WBC 8.5 RBC 3.56 L Hgb 10.7 L Hct 31.0 L MCV 87 MCH 30.1 MCHC 34.5 RDW 12.7 Plt Count 227 Seg Neutrophils % 60.6 Lymphocytes % 27.7 Monocytes % 6.4 Eosinophils % 3.9 Basophils % 1.4 Absolute Neutrophils 5.1 Absolute Lymphocytes 2.3 Absolute Monocytes 0.5 Absolute Eosinophils 0.3 Absolute Basophils 0.1 VBG pH 7.33 VBG pCO2 56.9 VBG HCO3 29.6 VBG Base Excess 2.3 Sodium Potassium Chloride Carbon Dioxide Anion Gap BUN Creatinine Est GFR ( Amer) Est GFR (Non-Af Amer) Glucose Lactic Acid 0.9 Calcium Phosphorus Magnesium Total Bilirubin AST ALT Alkaline Phosphatase Total Protein Albumin Triglycerides Cholesterol LDL Cholesterol Direct VLDL Cholesterol HDL Cholesterol 10/18/18 04:42 WBC RBC Hgb Hct MCV MCH MCHC RDW Plt Count Seg Neutrophils % Lymphocytes % Monocytes % Eosinophils % Basophils % Absolute Neutrophils Absolute Lymphocytes Absolute Monocytes Absolute Eosinophils Absolute Basophils VBG pH VBG pCO2 VBG HCO3 VBG Base Excess Sodium 135.3 L Potassium 4.8 Chloride 105 Carbon Dioxide 23 Anion Gap 7 BUN 25 H Creatinine 0.81 Est GFR ( Amer) > 60 Est GFR (Non-Af Amer) > 60 Glucose 303 H Lactic Acid Calcium 8.2 L Phosphorus 4.2 Magnesium 2.1 Total Bilirubin 0.4 AST 14 ALT 12 Alkaline Phosphatase 94 Total Protein 5.7 L Albumin 2.7 L Triglycerides 313 H Cholesterol 253.41 H LDL Cholesterol Direct 119 H VLDL Cholesterol 62.6 H HDL Cholesterol 38 L 10/18/18 04:42 NT-Pro-B Natriuret Pep 130 H Impressions: Foot X-Ray 10/17/18 09:44 IMPRESSION: PREVIOUS AMPUTATION OF THE LEFT 5TH TOE. NO OTHER SIGNIFICANT FINDINGS. Assessment & Plan - Diagnosis (1) Abscess of fourth toe, left Is this a current diagnosis for this admission?: Yes Plan: Diabetic foot infection of the left fourth toe. I have discussed with the patient options of left fourth toe amputation versus incision and drainage. Patient wants to try to save the left fourth toe if possible. We will plan initial debridement in the operating room but if she has exposed bone at that time we will plan to proceed with the amputation. Patient understands the plan very clearly. She understands risk and benefits of the surgery including risk for additional surgery need, poor wound healing, infection and bleeding. I will obtain noninvasive studies of her left leg to evaluate her vascular status.
[2018-10-18] MEDS ORDERED: FENTANYL CITRATE INJ/PF 100 MCG/2 ML AMPUL ONE (16:39)
[2018-10-18] MEDS ORDERED: PROPOFOL INJ 200 MG/20 ML VIAL IV ONE (16:39)
[2018-10-18] MEDS ORDERED: MIDAZOLAM 2 MG/2 ML INJ ONE (16:39)
[2018-10-18] MEDS ORDERED: BUPIVACAINE HCL 0.25 % INJ/PF (2.5 MG/1 ML) 30 ML VIAL ONE (17:03)
[2018-10-18] MEDS ORDERED: LIDOCAINE 1%/EPINEPHRINE INJ 20 ML VIAL ONE (17:03)
[2018-10-18] MEDS ORDERED: FENTANYL CITRATE INJ/PF 100 MCG/2 ML AMPUL IV PRN ×3 (17:30)
[2018-10-18] MEDS ORDERED: MORPHINE SULFATE 10 MG/ML INJ IV PRN ×2 (17:30→18:06)
[2018-10-18] MEDS ORDERED: MEPERIDINE HCL/PF INJ 25 MG/1 ML DISP.SYRIN IV PRN (17:30)
[2018-10-18] MEDS ORDERED: DIPHENHYDRAMINE HCL 50 MG/ML VIAL IV PRN (17:30)
[2018-10-18] MEDS ORDERED: PROMETHAZINE HCL INJ 25 MG/1 ML VIAL IV PRN ×2 (17:30)
--- NOTE | 2018-10-18 18:06 | Operative Report ---
Operative Report DATE OF SURGERY: 10/18/18 PREOPERATIVE DIAGNOSIS: Diabetic left fourth toe infection POSTOPERATIVE DIAGNOSIS: Osteomyelitis of the left fourth toe OPERATION: Left fourth toe amputation SURGEON: TAMMIE HENDERSON ANESTHESIA: LMAC TISSUE REMOVED OR ALTERED: Left fourth toe. Pus sent for Gram stain culture. COMPLICATIONS: None ESTIMATED BLOOD LOSS: 20 cc INTRAOPERATIVE FINDINGS: Full-thickness small necrotic area at the dorsum of the left fourth toe with underlying exposed bone. PROCEDURE: Informed consent was obtained. Patient was brought to the operating room and placed on the operating table in supine position. The procedure was done under LMAC since patient was insensate in her foot. Patient's left foot was prepped and draped in the usual sterile fashion. Necrotic area at the dorsum of her left foot was sharply debrided revealing pus and underlying bone that felt more spongy than normal. With the exposed bone underneath the necrotic region of tissue, I felt confident with the diagnosis of osteomyelitis and I did not think she would heal with a simple debridement. Therefore left fourth toe amputation was performed. Of note the pus that I encountered was swabbed for Gram stain and culture. A circumferential skin incision was made at the base of the left fourth toe. Dissection was carried down in the left fourth toe was disarticulated and submitted to pathology. The skin edges appeared viable with bleeding at the edges which were controlled with electrocautery. Hemostasis appeared to be good. The operative field was irrigated. The wound was loosely approximated with a single nylon vertical mattressing suture. The wound was packed with gauze. Local anesthetic was administered. Dressings were applied. patient tolerated procedure well with no apparent complication.
[2018-10-18] MEDS: INSULIN GLARGINE,HUM.REC.ANLOG 1,000 UNIT/10 ML VIAL SUBCUT SCH (21:43)
[2018-10-18] MEDS: ATORVASTATIN CALCIUM 40 MG TABLET PO SCH (21:43)
--- NOTE | 2018-10-18 21:49 | PDOC PROGRESS REPORT ---
Subjective Progress Note for:: 10/18/18 Reason For Visit: CELLULITIS,DIABETIC FOOT WOUND Physical Exam Vital Signs: Temp Pulse Resp BP Pulse Ox 98.2 F 89 15 150/78 H 100 10/18/18 20:40 10/18/18 20:40 10/18/18 20:40 10/18/18 20:40 10/18/18 20:40 Intake & Output 10/17/18 10/18/18 10/19/18 06:59 06:59 06:59 Intake Total 3210 600 Output Total 5 Balance 3210 595 Weight 78.8 kg General appearance: PRESENT: no acute distress, well-developed, well-nourished Head exam: PRESENT: atraumatic, normocephalic Eye exam: PRESENT: conjunctiva pink, EOMI, PERRLA. ABSENT: scleral icterus Ear exam: PRESENT: normal external ear exam Mouth exam: PRESENT: moist, tongue midline Neck exam: ABSENT: carotid bruit, JVD, lymphadenopathy, thyromegaly Respiratory exam: PRESENT: clear to auscultation [place]. ABSENT: rales, rhonchi, wheezes Cardiovascular exam: PRESENT: RRR. ABSENT: diastolic murmur, rubs, systolic murmur Pulses: PRESENT: normal dorsalis pedis pul Vascular exam: PRESENT: normal capillary refill GI/Abdominal exam: PRESENT: normal bowel sounds, soft. ABSENT: distended, guarding, mass, organolmegaly, rebound, tenderness Rectal exam: PRESENT: deferred Extremities exam: PRESENT: full ROM, other - L 5TH TOE AMPUTATION, 4TH TOE ERYTHEMA. L FOOT MILD EDEMA TODAY, IMPROVED.. ABSENT: calf tenderness, clubbing, pedal edema Musculoskeletal exam: PRESENT: deformity - L foot Neurological exam: PRESENT: alert, awake, oriented to person, oriented to place, oriented to time, oriented to situation Psychiatric exam: PRESENT: appropriate affect, normal mood Skin exam: PRESENT: dry, intact, warm. ABSENT: cyanosis, rash Results Laboratory Results: 10/18/18 04:42 10/18/18 04:42 10/18/18 10/18/18 04:42 04:42 WBC 8.5 RBC 3.56 L Hgb 10.7 L Hct 31.0 L MCV 87 MCH 30.1 MCHC 34.5 RDW 12.7 Plt Count 227 Seg Neutrophils % 60.6 Lymphocytes % 27.7 Monocytes % 6.4 Eosinophils % 3.9 Basophils % 1.4 Absolute Neutrophils 5.1 Absolute Lymphocytes 2.3 Absolute Monocytes 0.5 Absolute Eosinophils 0.3 Absolute Basophils 0.1 Sodium 135.3 L Potassium 4.8 Chloride 105 Carbon Dioxide 23 Anion Gap 7 BUN 25 H Creatinine 0.81 Est GFR ( Amer) > 60 Est GFR (Non-Af Amer) > 60 Glucose 303 H Calcium 8.2 L Phosphorus 4.2 Magnesium 2.1 Total Bilirubin 0.4 AST 14 ALT 12 Alkaline Phosphatase 94 Total Protein 5.7 L Albumin 2.7 L Triglycerides 313 H Cholesterol 253.41 H LDL Cholesterol Direct 119 H VLDL Cholesterol 62.6 H HDL Cholesterol 38 L 10/18/18 04:42 NT-Pro-B Natriuret Pep 130 H Impressions: Foot X-Ray 10/17/18 09:44 IMPRESSION: PREVIOUS AMPUTATION OF THE LEFT 5TH TOE. NO OTHER SIGNIFICANT FINDINGS. Status: Imported from PACS Assessment and Plan - Diagnosis (1) Diabetic foot ulcer Qualifiers: Diabetic foot ulcer location: toe Diabetes mellitus type: type 1 Laterality: left Non-pressure ulcer stage: with other severity Qualified Code(s): E10.621 - Type 1 diabetes mellitus with foot ulcer; L97.528 - Non- pressure chronic ulcer of other part of left foot with other specified severity Is this a current diagnosis for this admission?: Yes Plan: L 4th toe diabetic foot ulcer With surrounding erythema and edema to the dorsal aspect of the left foot History of osteomyelitis in the L fifth toe, status post amputation X-ray left foot negative for osteomyelitis Broad-spectrum antibiotic coverage as these wounds tend to be poly microbial Received IV vancomycin and Zosyn in the emergency department, plan to continue throughout hospitalization Surgery consulted for wound debridement vs. amputation - plan for OR today (2) Cellulitis Qualifiers: Site of cellulitis of extremity: lower extremity Laterality: left Is this a current diagnosis for this admission?: Yes Plan: see plan above (3) HTN (hypertension) Qualifiers: Hypertension type: essential hypertension Qualified Code(s): I10 - Essential (primary) hypertension Is this a current diagnosis for this admission?: Yes Plan: PMH HTN Patient states she is trying to control it with diet Currently not taking any medications PRN hydralazine IV for SBP>170 (4) Diabetes type 1, uncontrolled Qualifiers: Coma presence: without coma Is this a current diagnosis for this admission?: Yes Plan: PMH DM type 1 Diagnosed at age 8 Currently not taking insulin, states she "wanted a break from all of the fingersticks" Hgb A1C 13.1% Accu-Cheks AC at bedtime Humalog sliding scale insulin Consult breastfeeding educator and security field supervisor for patient education - Time Time Spent with patient: 15-24 minutes Medications reviewed and adjusted accordingly: Yes Anticipated discharge: Home Within: within 72 hours - Inpatient Certification Based on my medical assessment, after consideration of the patient's comorbidities, presenting symptoms, or acuity I expect that the services needed warrant INPATIENT care.: Yes I certify that my determination is in accordance with my understanding of Medicare's requirements for reasonable and necessary INPATIENT services [42 CFR 412.3e].: Yes Medical Necessity: Need for Pain Control, Need for IV Antibiotics, Need for Surgery, Risk of Complication if Not Cared For in Hospital
[2018-10-19] MEDS: PIPERACILLIN SODIUM/TAZOBACTAM 3.375 GM in NORMAL SALINE 100 ML IV SCH ×4 (00:52→18:29)
[2018-10-19] MEDS: NORMAL SALINE 1000 ML 1,000 ML IV PRN ×2 (06:29→17:24)
[2018-10-19] MEDS: INSULIN LISPRO 100 UNIT/ML 3 ML VIAL SUBCUT SCH ×4 (07:38→21:50)
--- NOTE | 2018-10-19 07:58 | XCELERA REPORT ---
[address] [address] Lower Extremity Arterial Evaluation Name: MIREYA BRADY Age: 48 yrs Gender: Female : 1970 Patient Status: Inpatient Patient Location: [address] [place] [address] Study Date: 10/18/2018 02:27 PM Procedure: A color flow and duplex scan of the lower extremity arteries was performed bilaterally with velocity and waveform anaylsis. Reason For Study: Arterial blood flow. Ordering Physician: TAMMIE HENDERSON Performed By: Samia Hayden Measurements and Calculations Right Left MEDICAL CODING MANAGER PSV 105.3 121.0 cm/sec Prox PFA PSV -68.5 -56.9 cm/sec Prox SFA PSV 79.9 -101.7cm/sec Mid SFA PSV -79.0 -96.7 cm/sec Dist SFA PSV -70.5 -89.9 cm/sec Prox Pop A PSV 64.9 72.7 cm/sec Dist ROHITH PSV 47.2 32.0 cm/sec Dist AGRONOMY TECHNICIAN PSV 85.6 44.0 cm/sec Rafat Pedis PSV -48.6 45.6 cm/sec Right Side Arterial Evaluation Normal velocity and triphasic waveforms noted from the Common Femoral artery to the Popliteal. Biphasic flow with moderate spectral broadening, normal velocities in the infrageniculate vessels . Ankle Brachial index not done. Left Side Arterial Evaluation Normal velocity and triphasic waveforms noted from the Common Femoral artery to the Popliteal. Biphasic flow with moderate spectral broadening, normal velocities in the infrageniculate vessels . Ankle Brachial index not done. Interpretation Summary Moderate hemodynamically significant lesions in the bilateral lower extremities, on duplex imaging, at rest. : TAMMIE HENDERSON > Gabino Figueroa
--- NOTE | 2018-10-19 09:04 | PDOC PROGRESS REPORT ---
Subjective Progress Note for:: 10/19/18 Subjective:: less pains left foot Reason For Visit: CELLULITIS,DIABETIC FOOT WOUND Physical Exam Vital Signs: Temp Pulse Resp BP Pulse Ox 98.5 F 93 16 153/71 H 100 10/18/18 22:40 10/18/18 22:40 10/18/18 22:40 10/18/18 22:40 10/18/18 22:40 Intake & Output 10/18/18 10/19/18 10/20/18 06:59 06:59 06:59 Intake Total 3210 3350 Output Total 5 Balance 3210 3345 Weight 78.8 kg 76.5 kg left 4th toe amp. Dressing is dry. Results Laboratory Results: 10/18/18 04:42 10/18/18 04:42 10/18/18 04:42 NT-Pro-B Natriuret Pep 130 H Impressions: Foot X-Ray 10/17/18 09:44 IMPRESSION: PREVIOUS AMPUTATION OF THE LEFT 5TH TOE. NO OTHER SIGNIFICANT FINDINGS. Assessment & Plan - Diagnosis (1) Abscess of fourth toe, left Is this a current diagnosis for this admission?: Yes (2) Cellulitis Qualifiers: Site of cellulitis of extremity: lower extremity Laterality: left Is this a current diagnosis for this admission?: Yes (3) Diabetes type 1, uncontrolled Qualifiers: Coma presence: without coma Is this a current diagnosis for this admission?: Yes - Time Time Spent with patient: 15-24 minutes - Inpatient Certification Medical Necessity: Need for IV Antibiotics - Plan Summary Plan Summary: Will remove packing in am and redress. Continue IV antibiotics
[2018-10-19] MEDS: VANCOMYCIN HCL 750 MG in DEXTROSE 5%-WATER 250 ML IV SCH ×2 (10:26→21:49)
[2018-10-19] MEDS: FAMOTIDINE 20 MG TABLET PO SCH ×2 (10:27→21:50)
[2018-10-19] MEDS: ENOXAPARIN SODIUM INJ 40 MG/0.4 ML DISP.SYRIN SUBCUT SCH (10:27)
[2018-10-19 10:35] LABS: HEMATOCRIT 30.7 % (36.0-47.0); HEMOGLOBIN 10.4 g/dL (12.0-15.5); MEAN CORPUSCULAR HEMOGLOBIN 29.6 pg (27.0-33.4); MEAN CORPUSCULAR HGB CONC 33.9 g/dL (32.0-36.0); MEAN CORPUSCULAR VOLUME 88 fl (80-97); PLATELET COUNT 260 10^3/uL (150-450); RED BLOOD COUNT 3.51 10^6/uL (3.72-5.28); RED CELL DISTRIBUTION WIDTH 12.6 % (11.5-14.0); WHITE BLOOD COUNT 12.1 10^3/uL (4.0-10.5)
[2018-10-19 10:52] LABS: ALANINE AMINOTRANSFERASE 13 U/L (9-52); ALBUMIN 2.5 g/dL (3.5-5.0); ALKALINE PHOSPHATASE 63 U/L (38-126); ANION GAP 7 (5-19); ASPARTATE AMINO TRANSFERASE 17 U/L (14-36); BILIRUBIN,DIRECT 0.2 mg/dL (0.0-0.4); BILIRUBIN,TOTAL 0.5 mg/dL (0.2-1.3); BLOOD UREA NITROGEN 14 mg/dL (7-20); CARBON DIOXIDE 23 mmol/L (22-30); CHLORIDE 107 mmol/L (98-107); GLUCOSE 263 mg/dL (75-110); PHOSPHORUS 3.6 mg/dL (2.5-4.5); POTASSIUM 4.6 mmol/L (3.6-5.0); SODIUM 137.3 mmol/L (137-145); TOTAL PROTEIN 5.6 g/dL (6.3-8.2)
[2018-10-19 10:58] LABS: VANCOMYCIN,TROUGH 14.9 ug/mL (5.0-20.0)
--- NOTE | 2018-10-19 21:33 | PDOC PROGRESS REPORT ---
Subjective Progress Note for:: 10/19/18 Subjective:: MIREYA BRADY is a 48 year old female with a PMH of DM type 1 and HTN. She presented to [facility] with a L 4th toe diabetic foot ulcer and surrounding cellulitis, ultimately requiring amputation. The patient was seen this morning on rounds. She is POD#1 4th toe amputation. The patient is awake and oriented, she has no complaints. The patient is waiting to be evaluated by the delivery coordinator and natural resources extension educator. Waiting for wound cultures to result for targeted antibiotic therapy. Reason For Visit: CELLULITIS,DIABETIC FOOT WOUND Physical Exam Vital Signs: Temp Pulse Resp BP Pulse Ox 98.8 F 85 16 153/85 H 98 10/19/18 19:52 10/19/18 19:52 10/19/18 19:52 10/19/18 19:52 10/19/18 19:52 Intake & Output 10/18/18 10/19/18 10/20/18 06:59 06:59 06:59 Intake Total 3210 3350 1790 Output Total 5 Balance 3210 3345 1790 Weight 78.8 kg 76.5 kg General appearance: PRESENT: no acute distress, well-developed, well-nourished Head exam: PRESENT: atraumatic, normocephalic Eye exam: PRESENT: conjunctiva pink, EOMI, PERRLA. ABSENT: scleral icterus Ear exam: PRESENT: normal external ear exam Mouth exam: PRESENT: moist, tongue midline Neck exam: ABSENT: carotid bruit, JVD, lymphadenopathy, thyromegaly Respiratory exam: PRESENT: clear to auscultation [place], symmetrical, unlabored. ABSENT: rales, rhonchi, wheezes Cardiovascular exam: PRESENT: RRR. ABSENT: diastolic murmur, rubs, systolic murmur Pulses: PRESENT: normal radial pulses, normal dorsalis pedis pul Vascular exam: PRESENT: normal capillary refill GI/Abdominal exam: PRESENT: normal bowel sounds, soft. ABSENT: distended, guarding, mass, organolmegaly, rebound, tenderness Rectal exam: PRESENT: deferred Extremities exam: PRESENT: full ROM. ABSENT: calf tenderness, clubbing, pedal edema Musculoskeletal exam: PRESENT: deformity - LEFT 4th and 5th toe amputations, full ROM Neurological exam: PRESENT: alert, awake, oriented to person, oriented to place, oriented to time, oriented to situation Psychiatric exam: PRESENT: appropriate affect, normal mood. ABSENT: homicidal ideation, suicidal ideation Skin exam: PRESENT: dry, intact, warm. ABSENT: cyanosis, rash Results Laboratory Results: 10/19/18 09:23 10/19/18 09:23 10/19/18 10/19/18 09:23 09:23 WBC 12.1 H RBC 3.51 L Hgb 10.4 L Hct 30.7 L MCV 88 MCH 29.6 MCHC 33.9 RDW 12.6 Plt Count 260 Sodium 137.3 Potassium 4.6 Chloride 107 Carbon Dioxide 23 Anion Gap 7 BUN 14 Creatinine 0.85 Est GFR ( Amer) > 60 Est GFR (Non-Af Amer) > 60 Glucose 263 H Calcium 8.0 L Phosphorus 3.6 Magnesium 1.8 Total Bilirubin 0.5 AST 17 ALT 13 Alkaline Phosphatase 63 Total Protein 5.6 L Albumin 2.5 L 10/18/18 04:42 NT-Pro-B Natriuret Pep 130 H Impressions: Foot X-Ray 10/17/18 09:44 IMPRESSION: PREVIOUS AMPUTATION OF THE LEFT 5TH TOE. NO OTHER SIGNIFICANT FINDINGS. Status: Imported from PACS Assessment and Plan - Diagnosis (1) Diabetic foot ulcer Qualifiers: Diabetic foot ulcer location: toe Diabetes mellitus type: type 1 Laterality: left Non-pressure ulcer stage: with other severity Qualified Code(s): E10.621 - Type 1 diabetes mellitus with foot ulcer; L97.528 - Non- pressure chronic ulcer of other part of left foot with other specified severity Is this a current diagnosis for this admission?: Yes Plan: POD#1 4th toe amputation L 4th toe diabetic ulcer With surrounding erythema and edema to the dorsal aspect of the left foot History of osteomyelitis in the L 5th toe, status post amputation X-ray left foot negative for osteomyelitis Broad-spectrum antibiotic coverage as these wounds tend to be poly microbial Continue IV vancomycin and Zosyn, awaiting wound C&S Surgery consulted, appreciate their expertise (2) Cellulitis Qualifiers: Site of cellulitis of extremity: lower extremity Laterality: left Is this a current diagnosis for this admission?: Yes Plan: see plan above (3) HTN (hypertension) Qualifiers: Hypertension type: essential hypertension Qualified Code(s): I10 - Essential (primary) hypertension Is this a current diagnosis for this admission?: Yes Plan: PMH HTN Patient states she is trying to control it with diet Currently not taking any medications PRN hydralazine IV for SBP>170 (4) Diabetes type 1, uncontrolled Qualifiers: Coma presence: without coma Is this a current diagnosis for this admission?: Yes Plan: [facility] DM type 1 Diagnosed at age 8 Currently not taking insulin, states she "wanted a break from all of the fingersticks" Hgb A1C 13.1% Accu-Cheks AC at bedtime Humalog sliding scale insulin Consult natural resources extension educator and delivery coordinator for patient education - Time Time Spent with patient: 15-24 minutes Medications reviewed and adjusted accordingly: Yes Anticipated discharge: Home Within: within 24 hours - Inpatient Certification Based on my medical assessment, after consideration of the patient's comorbidities, presenting symptoms, or acuity I expect that the services needed warrant INPATIENT care.: Yes I certify that my determination is in accordance with my understanding of Medicare's requirements for reasonable and necessary INPATIENT services [42 CFR 412.3e].: Yes Medical Necessity: Need for IV Antibiotics, Need for Surgery, Risk of Complication if Not Cared For in Hospital
[2018-10-19] MEDS: ATORVASTATIN CALCIUM 40 MG TABLET PO SCH (21:50)
[2018-10-19] MEDS: INSULIN GLARGINE,HUM.REC.ANLOG 1,000 UNIT/10 ML VIAL SUBCUT SCH (21:50)
[2018-10-19] MEDS ORDERED: INSULIN GLARGINE,HUM.REC.ANLOG 1,000 UNIT/10 ML VIAL (PYX) SUBCUT ONE (21:58)
[2018-10-20] MEDS: PIPERACILLIN SODIUM/TAZOBACTAM 3.375 GM in NORMAL SALINE 100 ML IV SCH ×4 (00:45→17:17)
[2018-10-20 05:58] LABS: HEMATOCRIT 32.6 % (36.0-47.0); HEMOGLOBIN 11.1 g/dL (12.0-15.5); MEAN CORPUSCULAR HEMOGLOBIN 29.8 pg (27.0-33.4); MEAN CORPUSCULAR VOLUME 88 fl (80-97); PLATELET COUNT 234 10^3/uL (150-450); RED BLOOD COUNT 3.72 10^6/uL (3.72-5.28); RED CELL DISTRIBUTION WIDTH 12.7 % (11.5-14.0); WHITE BLOOD COUNT 7.7 10^3/uL (4.0-10.5)
[2018-10-20 06:20] LABS: ALANINE AMINOTRANSFERASE 15 U/L (9-52); ALBUMIN 2.8 g/dL (3.5-5.0); ALKALINE PHOSPHATASE 93 U/L (38-126); ASPARTATE AMINO TRANSFERASE 14 U/L (14-36); BILIRUBIN,DIRECT 0.2 mg/dL (0.0-0.4); BILIRUBIN,TOTAL 0.4 mg/dL (0.2-1.3); BLOOD UREA NITROGEN 13 mg/dL (7-20); CALCIUM 8.2 mg/dL (8.4-10.2); CHLORIDE 106 mmol/L (98-107); GLUCOSE 252 mg/dL (75-110); POTASSIUM 4.6 mmol/L (3.6-5.0)
[2018-10-20 06:29] LABS: ANION GAP 5 (5-19); CARBON DIOXIDE 27 mmol/L (22-30); SODIUM 137.8 mmol/L (137-145)
[2018-10-20] MEDS: NORMAL SALINE 1000 ML 1,000 ML IV PRN (06:54)
[2018-10-20] MEDS: INSULIN LISPRO 100 UNIT/ML 3 ML VIAL SUBCUT SCH ×4 (08:12→22:03)
[2018-10-20] MEDS: VANCOMYCIN HCL 750 MG in DEXTROSE 5%-WATER 250 ML IV SCH ×2 (09:55→22:04)
[2018-10-20] MEDS: ENOXAPARIN SODIUM INJ 40 MG/0.4 ML DISP.SYRIN SUBCUT SCH (09:55)
[2018-10-20] MEDS: FAMOTIDINE 20 MG TABLET PO SCH ×2 (09:56→22:04)
--- NOTE | 2018-10-20 12:53 | PDOC PROGRESS REPORT ---
Subjective Progress Note for:: 10/20/18 Subjective:: Some wound pains Reason For Visit: CELLULITIS,DIABETIC FOOT WOUND Physical Exam Vital Signs: Temp Pulse Resp BP Pulse Ox 98.3 F 85 16 141/79 H 99 10/19/18 23:02 10/19/18 23:02 10/19/18 23:02 10/19/18 23:02 10/19/18 23:02 Intake & Output 10/19/18 10/20/18 10/21/18 06:59 06:59 06:59 Intake Total 3350 4160 100 Output Total 5 Balance 3345 4160 100 Weight 76.5 kg 77.3 kg Exam: Amp site packing removed Wound is dry and closed loosely Claims this is the same as her first amp of the 5th toe which took several months to completely closed though this wound is smaller than her previous amputation Results Laboratory Results: 10/20/18 05:32 10/20/18 05:32 10/20/18 10/20/18 05:32 05:32 WBC 7.7 RBC 3.72 Hgb 11.1 L Hct 32.6 L MCV 88 MCH 29.8 MCHC 34.0 RDW 12.7 Plt Count 234 Sodium 137.8 Potassium 4.6 Chloride 106 Carbon Dioxide 27 Anion Gap 5 BUN 13 Creatinine 0.88 Est GFR ( Amer) > 60 Est GFR (Non-Af Amer) > 60 Glucose 252 H Calcium 8.2 L Phosphorus 4.0 Magnesium 1.8 Total Bilirubin 0.4 AST 14 ALT 15 Alkaline Phosphatase 93 Total Protein 6.0 L Albumin 2.8 L 10/18/18 04:42 NT-Pro-B Natriuret Pep 130 H Impressions: Foot X-Ray 10/17/18 09:44 IMPRESSION: PREVIOUS AMPUTATION OF THE LEFT 5TH TOE. NO OTHER SIGNIFICANT FINDINGS. Assessment & Plan - Diagnosis (1) Abscess of fourth toe, left Is this a current diagnosis for this admission?: Yes (2) Cellulitis Qualifiers: Site of cellulitis of extremity: lower extremity Laterality: left Is this a current diagnosis for this admission?: Yes (3) Diabetes type 1, uncontrolled Qualifiers: Coma presence: without coma Is this a current diagnosis for this admission?: Yes - Time Time Spent with patient: 15-24 minutes - Inpatient Certification Medical Necessity: Need for IV Antibiotics - Plan Summary Plan Summary: Continue IV antibiotics next 24-48 hrs then po for another week Dry dressings daily Arrange follow up surgical clinic in 2 weeks Will sign off. Call for questions
--- NOTE | 2018-10-20 20:51 | PDOC PROGRESS REPORT ---
Subjective Progress Note for:: 10/20/18 Subjective:: MIREYA BRADY is a 48 year old female with a PMH of DM type 1 and HTN. She presented to [facility] with a L 4th toe diabetic foot ulcer and surrounding cellulitis, ultimately requiring amputation. The patient was seen this morning on rounds. She is POD#2 4th toe amputation. The patient is awake and oriented, she has no complaints. Dry dressing change done by surgery. Waiting for wound cultures to result for targeted antibiotic therapy. Likely discharge home tomorrow. Reason For Visit: CELLULITIS,DIABETIC FOOT WOUND Physical Exam Vital Signs: Temp Pulse Resp BP Pulse Ox 98.3 F 85 16 141/79 H 99 10/19/18 23:02 10/19/18 23:02 10/19/18 23:02 10/19/18 23:02 10/19/18 23:02 Intake & Output 10/19/18 10/20/18 10/21/18 06:59 06:59 06:59 Intake Total 3350 4160 1627 Output Total 5 Balance 3345 4160 1627 Weight 76.5 kg 77.3 kg General appearance: PRESENT: no acute distress, well-developed, well-nourished Head exam: PRESENT: atraumatic, normocephalic Eye exam: PRESENT: conjunctiva pink, EOMI, PERRLA. ABSENT: scleral icterus Ear exam: PRESENT: normal external ear exam Mouth exam: PRESENT: moist, tongue midline Neck exam: ABSENT: carotid bruit, JVD, lymphadenopathy, thyromegaly Respiratory exam: PRESENT: clear to auscultation [place], symmetrical, unlabored. ABSENT: rales, rhonchi, wheezes Cardiovascular exam: PRESENT: RRR. ABSENT: diastolic murmur, rubs, systolic murmur Pulses: PRESENT: normal radial pulses, +1 pedal pulses bilateral Vascular exam: PRESENT: normal capillary refill GI/Abdominal exam: PRESENT: normal bowel sounds, soft. ABSENT: distended, guarding, mass, organolmegaly, rebound, tenderness Rectal exam: PRESENT: deferred Extremities exam: PRESENT: full ROM. ABSENT: calf tenderness, clubbing, pedal edema Musculoskeletal exam: PRESENT: deformity - left 4th and 5th toe amputations, full ROM Neurological exam: PRESENT: alert, awake, oriented to person, oriented to place, oriented to time, oriented to situation Psychiatric exam: PRESENT: appropriate affect, normal mood Skin exam: PRESENT: dry, intact, warm. ABSENT: cyanosis, rash Results Laboratory Results: 10/20/18 05:32 10/20/18 05:32 10/20/18 10/20/18 05:32 05:32 WBC 7.7 RBC 3.72 Hgb 11.1 L Hct 32.6 L MCV 88 MCH 29.8 MCHC 34.0 RDW 12.7 Plt Count 234 Sodium 137.8 Potassium 4.6 Chloride 106 Carbon Dioxide 27 Anion Gap 5 BUN 13 Creatinine 0.88 Est GFR ( Amer) > 60 Est GFR (Non-Af Amer) > 60 Glucose 252 H Calcium 8.2 L Phosphorus 4.0 Magnesium 1.8 Total Bilirubin 0.4 AST 14 ALT 15 Alkaline Phosphatase 93 Total Protein 6.0 L Albumin 2.8 L 10/18/18 04:42 NT-Pro-B Natriuret Pep 130 H Impressions: Foot X-Ray 10/17/18 09:44 IMPRESSION: PREVIOUS AMPUTATION OF THE LEFT 5TH TOE. NO OTHER SIGNIFICANT FINDINGS. Status: Imported from PACS Assessment and Plan - Diagnosis (1) Diabetic foot ulcer Qualifiers: Diabetic foot ulcer location: toe Diabetes mellitus type: type 1 Laterality: left Non-pressure ulcer stage: with other severity Qualified Code(s): E10.621 - Type 1 diabetes mellitus with foot ulcer; L97.528 - Non- pressure chronic ulcer of other part of left foot with other specified severity Is this a current diagnosis for this admission?: Yes Plan: POD#2 4th toe amputation L 4th toe diabetic ulcer With surrounding erythema and edema to the dorsal aspect of the left foot History of osteomyelitis in the L 5th toe, status post amputation X-ray left foot negative for osteomyelitis Broad-spectrum antibiotic coverage as these wounds tend to be poly microbial Continue IV vancomycin and Zosyn, awaiting wound C&S Surgery consulted, appreciate their expertise (2) Cellulitis Qualifiers: Site of cellulitis of extremity: lower extremity Laterality: left Is this a current diagnosis for this admission?: Yes Plan: see plan above (3) HTN (hypertension) Qualifiers: Hypertension type: essential hypertension Qualified Code(s): I10 - Essential (primary) hypertension Is this a current diagnosis for this admission?: Yes Plan: PMH HTN Patient states she is trying to control it with diet Currently not taking any medications SBP 145-165 during hospitalization Started on PO lisinopril PRN hydralazine IV for SBP>170 (4) Diabetes type 1, uncontrolled Qualifiers: Coma presence: without coma Is this a current diagnosis for this admission?: Yes Plan: [facility] DM type 1 Diagnosed at age 8 Currently not taking insulin, states she "wanted a break from all of the fingersticks" Hgb A1C 13.1% Accu-Cheks AC at bedtime Humalog sliding scale insulin Diabetic diet Met with DM educator and molybdenum steamer operator - Time Time Spent with patient: 15-24 minutes Medications reviewed and adjusted accordingly: Yes Anticipated discharge: Home Within: within 24 hours - Inpatient Certification Based on my medical assessment, after consideration of the patient's comorbidities, presenting symptoms, or acuity I expect that the services needed warrant INPATIENT care.: Yes I certify that my determination is in accordance with my understanding of Medicare's requirements for reasonable and necessary INPATIENT services [42 CFR 412.3e].: Yes Medical Necessity: Need for IV Antibiotics, Need for Surgery
[2018-10-20] MEDS: INSULIN GLARGINE,HUM.REC.ANLOG 1,000 UNIT/10 ML VIAL SUBCUT SCH (22:04)
[2018-10-20] MEDS: ATORVASTATIN CALCIUM 40 MG TABLET PO SCH (22:04)
[2018-10-21] MEDS: PIPERACILLIN SODIUM/TAZOBACTAM 3.375 GM in NORMAL SALINE 100 ML IV SCH ×4 (01:00→17:40)
[2018-10-21] MEDS: INSULIN LISPRO 100 UNIT/ML 3 ML VIAL SUBCUT SCH ×3 (07:47→17:39)
[2018-10-21] MEDS ORDERED: LISINOPRIL 10 MG TABLET PO SCH (10:00)
[2018-10-21] MEDS: ENOXAPARIN SODIUM INJ 40 MG/0.4 ML DISP.SYRIN SUBCUT SCH (10:34)
[2018-10-21] MEDS: VANCOMYCIN HCL 750 MG in DEXTROSE 5%-WATER 250 ML IV SCH (10:34)
[2018-10-21] MEDS: FAMOTIDINE 20 MG TABLET PO SCH (10:34)
[2018-10-21 18:45] VITALS: BP 153/85
== END 2018-10-21 19:00 | disposition home or self-care (01) | DRG 617 ==
LOC: ER 09:25 → EH 12:19 → 4S 14:30
PROVIDERS: ADMIT Hospitalist; ATTEND Hospitalist
PROC: 0Y6W0Z3 Detachment at Left 4th Toe, Low, Open Approach (ICD-10-PCS; principal; 2018-10-18 16:15)
DX: E10.621 Type 1 diabetes mellitus with foot ulcer (principal); L03.116 Cellulitis of left lower limb; M86.9 Osteomyelitis, unspecified; L97.529 Non-pressure chronic ulcer of other part of left foot with unspecified severity; E10.65 Type 1 diabetes mellitus with hyperglycemia; E10.69 Type 1 diabetes mellitus with other specified complication; I10 Essential (primary) hypertension; Z79.4 Long term (current) use of insulin; Z91.14 Patient's other noncompliance with medication regimen; Z89.422 Acquired absence of other left toe(s)
CPT/HCPCS: 01480; 36415; 80053; 80061; 80202; 82803; 82962; 83036; 83605; 83735; 83880; 84100; 85025; 85027; 87040; 87070; 87075; 87077; 87186; 87205; 88305; 88311; 93925; 96374; 99284; J1650; J1815; J2250; J2543; J2704; J3010; J3370; J3490; J7030; J7050; J7060; S0119